=== PATIENT | female | born 1990 | race Hispanic/Latino ===

== ENCOUNTER 2022-10-02 17:11 | Emergency (ER) | payer MEDICAID ==
[2022-10-02] MEDS ORDERED: Lidocaine Viscous Sol 2% 15 ml UD Cup ONE (19:44)
== END 2022-10-02 18:36 | disposition home or self-care (01) ==
LOC: ERS 17:11
DX: L03.116 Cellulitis of left lower limb (principal)
CPT/HCPCS: 99282